=== PATIENT | male | born 1995 | race Caucasian/White ===

== ENCOUNTER 2017-04-10 17:56 | Emergency (ER) | payer OTHER ==
[2017-04-10 18:01] VITALS: BP 149/91; PULSE 67; RESP 18; TEMP 98.6; O2SAT 97
[2017-04-10] MEDS ORDERED: PROPARACAINE 0.5% 15 ML OPHT DROP OP ONE (19:12)
[2017-04-10] MEDS ORDERED: FLUORESCEIN SODIUM 1 MG STRIP OP ONE (19:12)
--- NOTE | 2017-04-10 20:32 | EDPHY ---
H & P Time Seen by Provider: 04/10/17 19:11 HPI/ROS: CHIEF COMPLAINT: right eye complaint HISTORY OF PRESENT ILLNESS: 21-year-old male presents emergency department complaining of right eye possible foreign body. Patient was at work cleaning a table when he felt a firm object go into his eye. Patient use the eye wash station at work for 30 minutes. He states it was red initially and he had a foreign body sensation that has subsided. He denies blurred vision. No pain in this eye, no swelling, no drainage or discharge. Tetanus is up-to-date. Smoking Status: Current some day smoker Physical Exam: Right eye Visual Acuity: Noted from Nurse's notes. Pupils: PERRLA, EOMI, no nystagmus, no trauma, no injection. Lids: No edema or swelling Skin: No proptosis, no periorbital erythema or swelling, no vesicles Conjunctivae: Not injected, not icteric, no discharge Cornea: Exam with slit lamp and fluoroscein shows no corneal abrasion Anterior chamber: Normal, no hyphema or hypopyon Constitutional: Initial Vital Signs Temperature (C) 37 C 04/10/17 17:58 Heart Rate 67 04/10/17 17:58 Respiratory Rate 18 04/10/17 17:58 Blood Pressure 149/91 H 04/10/17 17:58 O2 Sat (%) 97 04/10/17 17:58 O2 Delivery Mode Room Air Allergies/Adverse Reactions: ibuprofen Allergy (Intermediate, Verified 04/10/17 17:59) swelling walnuts Allergy (Intermediate, Uncoded 04/10/17 17:59) swelling Home Medications: Medication Instructions Recorded NK [No Known Home Meds] 04/10/17 MDM/Departure - MDM Medications Given: Discontinued Medications Fluorescein Sodium ([id number]) 1 mg OP EDNOW ONE Stop: 04/10/17 19:13 Last Admin: 04/10/17 19:37 Dose: 1 mg Proparacaine HCl (Alcaine 0.5%) 1 drops OP EDNOW ONE Stop: 04/10/17 19:13 Last Admin: 04/10/17 19:37 Dose: 1 box - Depart Disposition: Home, Routine, Self-Care Clinical Impression: Irritation of right eye Condition: Good Instructions: Eye Foreign Body (ED) Additional Instructions: Use saline eyedrops as much as needed for comfort. Follow up with [facility] for any continued symptoms, new symptoms or concerns. Referrals: Kenton Bella MD [Medical Doctor] - As per Instructions ([facility] Human Resources Manager on- call)
== END 2017-04-10 20:49 | disposition home or self-care (01) ==
DX: H57.8 Other specified disorders of eye and adnexa (principal); F17.200 Nicotine dependence, unspecified, uncomplicated